=== PATIENT | male | born 1975 | race Caucasian/White ===

== ENCOUNTER 2021-12-27 12:43 | Emergency (ER) | payer OTHER ==
[~2021-12-27] VITALS: Ht 182.9 cm; Wt 55.8 kg
== END 2021-12-27 19:46 | disposition home or self-care (01) ==
LOC: ER 12:43
DX: R10.9 Unspecified abdominal pain (principal); K57.92 Diverticulitis of intestine, part unspecified, without perforation or abscess without bleeding; B20 Human immunodeficiency virus [HIV] disease; K62.89 Other specified diseases of anus and rectum; R55 Syncope and collapse